=== PATIENT | male | born 2000 | race Caucasian/White ===

== ENCOUNTER 2022-06-20 23:23 | Emergency (ER) | payer OTHER ==
--- NOTE | 2022-06-20 23:35 | ED Physician Documentation ---
PD HPI SKIN - Stated complaint Stated Complaint: L LEG LAC - History obtained from History obtained from: Patient - History of Present Illness Timing - onset: Today (Just prior to arrival) - Additional information Additional information: 22-year-old male with no reported past medical history presents by private vehicle for evaluation of left thigh wound. Patient states that he accidentally stabbed himself superficially with a steak knife while eating dinner. He cleaned the wound at home, however his insisted that he be evaluated in the emergency department. He states that he has had a tetanus shot within the last 5 years. Review of Systems Ten Systems: 10 systems reviewed and negative Constitutional: denies: Fever, Chills Skin: reports: Laceration (s). denies: Rash, Lesions, Abrasion (s) Musculoskeletal: reports: Extremity pain. denies: Joint pain, Extremity swelli ng PD PAST MEDICAL HISTORY - Allergies Allergies/Adverse Reactions: Allergies Allergy/AdvReac Type Severity Reaction Status Date / Time No Known Drug Allergies Allergy Verified 06/20/22 23:34 PD ED PE NORMAL - Vitals Vital signs reviewed: Yes - General General: Alert and oriented X 3, No acute distress, Well developed/nourished - Cardiac Cardiac: RRR, Strong equal pulses - Respiratory Respiratory: No respiratory distress, Clear bilaterally - Abdomen Abdomen: Soft, Non tender, Non distended - Derm Derm: Normal color, Warm and dry, Other (0.5cm puncture wound over proximal, anterior L thigh. 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 No active bleeding, patient is up-to-date on his tetanus shot. I offered suturing of the wound if he desired, however patient stated that he was confident that it would heal naturally and he was not concerned about scarring. He states the only reason he is here today is because his made him be evaluated. Wound care instructions and precautions discussed with patient at bedside Departure - Departure Disposition: 01 Home, Self Care Clinical Impression: Puncture wound Condition: Stable Instructions: ED Wound Puncture General Comments: Keep your wound clean and dry. You should wear a bandage on it when you are out and about during the day, but at night you may take the bandage off and allow it to air dry. Look for signs of infection including redness, swelling, or drainage from the wound. Discharge Date/Time: 06/20/22 23:40
[2022-06-20 23:39] VITALS: BP 120/72
== END 2022-06-20 23:40 | disposition home or self-care (01) ==
LOC: ED 23:23
DX: S71.132A Puncture wound without foreign body, left thigh, initial encounter (principal); W26.0XXA Contact with knife, initial encounter
CPT/HCPCS: 99281; 99282